=== PATIENT | male | born 1985 | race Caucasian/White ===

== ENCOUNTER 2018-01-18 23:26 | Emergency (ER) | payer SELFPAY ==
[~2018-01-18] VITALS: Ht 177.8 cm; Wt 101.7 kg
[2018-01-18] MEDS ORDERED: ONDANSETRON ODT 4 MG ONE (23:44)
[2018-01-18] MEDS ORDERED: HYDROcodone/APAP 5/325 TABLET ONE (23:44)
[2018-01-18] MEDS ORDERED: KETOROLAC 30 MG/1 ML ONE (23:44)
[2018-01-18 23:52] LABS: BASOPHILS # (AUTO) 0.08 x10^3/uL (0-0.1); BASOPHILS % (AUTO) 1 % (0-1); EOSINOPHILS # (AUTO) 0.38 x10^3/uL (0-0.4); EOSINOPHILS % (AUTO) 2 % (1-7); LYMPHOCYTES % (AUTO) 14 % (22-44); MD NO; MEAN CORPUSCULAR HGB CONC 33.8 g/dL (33.2-36.2); MEAN CORPUSCULAR VOLUME 94.5 fL (81-97); MEAN PLATELET VOLUME 7.8 fL (7.4-10.4); MONOCYTES # (AUTO) 1.28 x10^3/uL (0.2-0.8); MONOCYTES % (AUTO) 8 % (2-9); NEUTROPHILS # (AUTO) 12.19 x10^3/uL (1.8-6.8); NEUTROPHILS % (AUTO) 76 % (42-75); PLATELET COUNT 319 x10^3/uL (130-400); RED BLOOD COUNT 4.75 x10^6/uL (4.38-5.82); RED CELL DISTRIBUTION WIDTH 12.9 % (9.4-14.8)
[2018-01-19] MEDS ORDERED: ONDANSETRON ODT 4 MG PO ONE
[2018-01-19] MEDS ORDERED: HYDROcodone/APAP 5/325 TABLET PO PRN
[2018-01-19] MEDS ORDERED: KETOROLAC 30 MG/1 ML IM ONE
[2018-01-19 00:04] LABS: ALANINE AMINOTRANSFERASE 48 U/L (12-78); ALBUMIN 4.1 g/dL (3.4-5.0); ANION GAP 7 mmol/L (5-15); CALCIUM 8.7 mg/dL (8.5-10.1); CHLORIDE 107 mmol/L (98-107)
[2018-01-19 00:05] LABS: MICROSCOPIC INDICATED
[2018-01-19 00:06] LABS: CULTURE INDICATED? YES
[2018-01-19 00:07] LABS: ALKALINE PHOSPHATASE 58 U/L (45-117); BILIRUBIN,TOTAL 0.3 mg/dL (0.2-1.0); TOTAL PROTEIN 7.3 g/dL (6.4-8.2)
[2018-01-19 02:30] VITALS: BP 114/71
== END 2018-01-19 02:32 | disposition home or self-care (01) ==
LOC: ED 23:59
DX: N20.2 Calculus of kidney with calculus of ureter (principal); F17.200 Nicotine dependence, unspecified, uncomplicated
CPT/HCPCS: 36415; 74176; 80053; 81001; 85025; 87086; 96372; 99285; J1885; Q0162